=== PATIENT | male | born 1960 | race Caucasian/White ===

== ENCOUNTER → 2023-05-07 | Outpatient (CLI) | payer MEDICARE, SELFPAY ==
[2023-05-07 12:19] LABS: Absolute Lymphocyte Count 1.07 X10^3/uL (0.83-4.51); Absolute Neutrophil Count 5.5 X10^3/uL (2.0-7.7); Basophil# 0.08 X10^3/uL; Eosinophil# 0.45 X10^3/uL; Eosinophils% 5.8 % (0-5); Hematocrit 47.8 % (40-54); Hemoglobin 15.6 g/dL (13.0-16.5); Lymphocyte # 1.07 X10^3/ul (0.83-4.51); Lymphocyte % 13.7 % (19-41); Mean Corp Hgb Conc 32.6 g/dL (32-36); Mean Corpuscular Hgb 31.1 pg (27.0-32.0); Mean Corpuscular Volume 95.2 fL (80-94); Mean Platelet Vol. 9.9 fl (6.2-12.0); NRBC Flagged by Analyzer 0 % (0-5); Neutrophil # 5.48 X10^3/uL (2.7-7.7); Neutrophil % 70.2 % (47-70); Platelet Count 263 K/mm3 (150-450); RBC Distribution Width CV 12.5 % (11.6-14.6); RBC Distribution Width SD 43.4 fl (35.1-43.9); Red Blood Count 5.02 M/mm3 (4.6-6.2); White Blood Count 7.8 K/mm3 (4.4-11.0)
[2023-05-07 13:02] LABS: AST(SGOT) 11 U/L (15-37); Alanine Aminotransfer ALT/SGPT 18 U/L (16-61); Albumin, Serum 3.7 g/dL (3.2-5.0); Alkaline Phosphatase 78 U/L (45-117); Anion Gap 5 (5-15); BUN 16 mg/dL (7-18); BUN/Creat Ratio 14.7 RATIO (10-20); Calcium,Total 9.1 mg/dL (8.5-10.1); Chloride 106 mmol/L (98-107); Cholesterol 216 mg/dL (200); Creatinine, Serum 1.09 mg/dL (0.70-1.30); EST Glomerular Filtration Rate 72 mL/min (>60); Est Glom Filt Rate - Afr Amer 87 mL/min (>60); Globulin 3.6 g/dL (2.2-4.2); Glucose 107 mg/dL (74-106); High Density Lipoprotein 51 mg/dL; Protein, Total 7.3 g/dL (6.4-8.2); Sodium Level 136 mmol/L (136-145); Triglycerides 154 mg/dL; Very Low Density Lipoprotein 31 mg/dL (5-40)
== END | disposition home or self-care (01) ==
PROVIDERS: PCP Family Medicine; Referring Provider Family Medicine; Visit Provider Family Medicine
DX: R03.0 Elevated blood-pressure reading, without diagnosis of hypertension (principal)
CPT/HCPCS: 36415; 80053; 80061; 85025

== ENCOUNTER → 2023-05-17 | Outpatient (CLI) | payer MEDICARE, SELFPAY ==
--- NOTE | 2023-05-17 07:51 | AAVD_ITS ---
Version 2 Reason For Study: AAA Screening Aorta Measurements Aorta Doppler Measurements Proximal aorta measures2.49 x 2.49cm. in cross- Peak systolic flow velocities within the proximal sectional axis. aorta measure 71.3 cm/sec. Proximal aorta measures2.44cm. in longitudinal Peak systolic flow velocities within the mid aorta axis. measure 82.3 cm/sec. Mid aorta measures2.06 x 2.10cm. in cross- Peak systolic flow velocities within the distal sectional axis. aorta measure 42.8 cm/sec. Mid aorta measures2.04cm. in longitudinal axis. Distal aorta measures3.53 x 3.53cm. in cross- sectional axis. Distal aorta measures3.65cm. in longitudinal axis. Heterogenous plaque, possible mural thrombus noted in distal portion of Aorta. Left Iliac Artery Left iliac artery measures 0.92 x 0.92 cm. in the cross-sectional axis. Left iliac artery measures 0.95 cm. in the longitudinal axis. Peak systolic velocity in the left iliac artery measures 127.1 cm/sec. Right Iliac Artery Right iliac artery measures 0.89 x 0.95 cm. in the cross-sectional axis. Right iliac artery measures 0.89 cm. in the longitudinal axis. Peak systolic velocity in the right iliac artery measures 122.7 cm/sec. Procedure Aorta IVC Iliac vasculature or bypass grafts 73003. The exam was diagnostic. Exam performed in department. 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 Bilateral iliac arteries patent, normal caliber. Ordering Physician: Charlie Welch Referring Physician: Charlie Welch Performed By: Kahlil Roa RVT
== END | disposition home or self-care (01) ==
PROVIDERS: PCP Family Medicine; Referring Provider Family Medicine; Visit Provider Family Medicine
DX: Z72.0 Tobacco use (principal)
CPT/HCPCS: 93978

== ENCOUNTER → 2023-05-24 | Outpatient (CLI) | payer MEDICARE, SELFPAY ==
--- NOTE | 2023-05-24 17:59 | CT_ITS ---
STUDY: LOW DOSE CT LUNG CANCER SCREENING REASON FOR EXAM: Male, 62 years old. TOBACCO USE RADIATION DOSAGE (If Supplied By Facility): CTDIvol = ( 3.02 ) mGy, DLP = ( 111.74 ) mGycm TECHNIQUE: No contrast was administered. Low dose technique was utilized (average mAS-38 and kVp 120). 1.25 mm axial source images with a slice interval of 1.25-mm were reconstructed in lung windows. 2.5 mm axial source images with a slice interval of 2.5-mm were reconstructed in lung windows. 5.0 mm axial source images with a slice interval of 5.0-mm were reconstructed in soft tissue windows. COMPARISON: None. Emphysema: Mild bilateral apical scarring. Severe emphysema with a large bulla in the apex of the left lung. 6 mm noncalcified subpleural nodule in the superior segment of the right lower lobe of the lungs on image 120 and follow-up CT is recommended in 6 months document stability. 4 mm noncalcified nodule in the periphery of the right upper lobe with lungs and image 131. 6 mm noncalcified nodule in the anterior right middle lobe lung associated with the minor fissure consistent with a perifissural lymph node.. Endobronchial lesion: None Aorta: Some calcified plaque in the aortic arch but no aortic aneurysm. CORONARY ARTERIES: Coronary artery calcification is seen. Heart: No cardiomegaly. Pulmonary artery: Normal Mediastinal nodes: Normal Other chest and abdominal findings: None CT/Low Dose CT Lung Screening IMPRESSION: Lung-RADS category 3 - Continue screening with LDCT in 6 months. IMPORTANT NOTES FOR USE: ACR Lung-RADS Version 1.1 Assessment Categories Release Date: 2018 Category: Coded 0-4 bases on nodule(s) with highest degree of suspicion. Negative screen is defined as categories 1 and 2; a positive screen is defined as categories 3 and 4. Category 3 and 4A nodules that are unchanged on interval CT should be coded as category 2, and individuals returned to screening in 12 months. Category 4X: Category 3 or 4 nodules with additional imaging findings that increase the suspicion of lung cancer, such as spiculation, GGN that doubles in size in 1 year, enlarged lymph notes, etc. Category Modifiers: S (significant finding unrelated to lung cancer) Electronically Signed: aNeem Lenz MD at 23:03 EST ,
== END | disposition home or self-care (01) ==
LOC: CT 17:57
PROVIDERS: PCP Family Medicine; Referring Provider Family Medicine; Visit Provider Family Medicine
DX: Z12.2 Encounter for screening for malignant neoplasm of respiratory organs (principal); Z87.891 Personal history of nicotine dependence
CPT/HCPCS: 71271

== ENCOUNTER → 2023-11-25 | Outpatient (CLI) | payer MEDICARE, SELFPAY ==
--- NOTE | 2023-11-25 07:54 | CT_ITS ---
STUDY: LOW DOSE CT LUNG CANCER SCREENING REASON FOR EXAM: Male, 63 years old. EMPHYSEMA, LUNG NODULE. The patient smoked 1 pack per day for 50 years. RADIATION DOSAGE (If Supplied By Facility): CTDIvol = ( 3.02 ) mGy, DLP = ( 114.38 ) mGycm TECHNIQUE: No contrast was administered. Low dose technique was utilized (average mAS-38 and kVp 120). 1.25 mm axial source images with a slice interval of 1.25-mm were reconstructed in lung windows. 2.5 mm axial source images with a slice interval of 2.5-mm were reconstructed in lung windows. 5.0 mm axial source images with a slice interval of 5.0-mm were reconstructed in soft tissue windows. COMPARISON: Comparison is made with prior study dated May 24, 2023. NODULES: Stable 6 mm nodule in the right middle lobe anteriorly adjacent to the minor fissure. Emphysema: Hyperinflation. Emphysematous changes more prominent in the upper lobes. Stable large bulla in the apex of the left lung. 6 mm noncalcified nodule in the superior medial segment of the right lower lobe abutting the pleura. Stable 4 mm noncalcified nodule in the periphery of the right upper lobe. Endobronchial lesion: None Aorta: Atherosclerotic calcific plaques. CORONARY ARTERIES: Coronary artery calcification is seen. Heart: Unremarkable Pulmonary artery: Unremarkable Mediastinal nodes: Unremarkable Other chest and abdominal findings: CT/Low Dose CT Lung Screening IMPRESSION: Lung-RADS category 2 - Continue annual screening with LDCT in 12 months. IMPORTANT NOTES FOR USE: ACR Lung-RADS Version 1.1 Assessment Categories Release Date: 2018 Category: Coded 0-4 bases on nodule(s) with highest degree of suspicion. Negative screen is defined as categories 1 and 2; a positive screen is defined as categories 3 and 4. Category 3 and 4A nodules that are unchanged on interval CT should be coded as category 2, and individuals returned to screening in 12 months. Category 4X: Category 3 or 4 nodules with additional imaging findings that increase the suspicion of lung cancer, such as spiculation, GGN that doubles in size in 1 year, enlarged lymph notes, etc. Category Modifiers: S (significant finding unrelated to lung cancer) Electronically Signed: Emir Bell MD at 14:47 EDT ,
== END | disposition home or self-care (01) ==
LOC: CT 07:36
PROVIDERS: PCP Family Medicine; Referring Provider Family Medicine; Visit Provider Family Medicine
DX: Z12.2 Encounter for screening for malignant neoplasm of respiratory organs (principal); F17.210 Nicotine dependence, cigarettes, uncomplicated
CPT/HCPCS: 71271

== ENCOUNTER → 2023-11-26 | Outpatient (CLI) | payer MEDICARE, SELFPAY | END | disposition home or self-care (01) | LOC: PSN 12:37 | PROVIDERS: PCP Family Medicine; Referring Provider Family Medicine; Visit Provider Family Medicine | DX: R91.1 Solitary pulmonary nodule (principal); J43.9 Emphysema, unspecified | CPT/HCPCS: 94060; 94726; 94729 ==

== ENCOUNTER → 2024-05-21 | Outpatient (CLI) | payer MEDICARE, SELFPAY ==
[2024-05-21 15:13] LABS: Absolute Lymphocyte Count 1.28 X10^3/uL (0.83-4.51); Absolute Neutrophil Count 4.5 X10^3/uL (2.0-7.7); Basophil# 0.08 X10^3/uL; Basophil% 1.1 % (0-1); Eosinophil# 0.59 X10^3/uL; Eosinophils% 8.2 % (0-5); Hematocrit 46.9 % (40-54); Hemoglobin 15.1 g/dL (13.0-16.5); Lymphocyte # 1.28 X10^3/ul (0.83-4.51); Lymphocyte % 17.8 % (19-41); Mean Corp Hgb Conc 32.2 g/dL (32-36); Mean Corpuscular Volume 93.1 fL (80-94); Mean Platelet Vol. 9.4 fl (6.2-12.0); Monocyte# 0.72 X10^3/uL; NRBC Flagged by Analyzer 0 % (0-5); Neutrophil % 62.6 % (47-70); Platelet Count 326 K/mm3 (150-450); RBC Distribution Width CV 12.4 % (11.6-14.6); RBC Distribution Width SD 42.5 fl (35.1-43.9); Red Blood Count 5.04 M/mm3 (4.6-6.2); White Blood Count 7.2 K/mm3 (4.4-11.0)
[2024-05-21 15:58] LABS: AST(SGOT) 12 U/L (15-37); Alanine Aminotransfer ALT/SGPT 25 U/L (16-61); Albumin, Serum 3.7 g/dL (3.2-5.0); Alkaline Phosphatase 82 U/L (45-117); Anion Gap 4 (5-15); BUN 16 mg/dL (7-18); BUN/Creat Ratio 15.8 RATIO (10-20); Calcium,Total 9.2 mg/dL (8.5-10.1); Chloride 106 mmol/L (98-107); Cholesterol 212 mg/dL (200); Creatinine, Serum 1.01 mg/dL (0.70-1.30); EST Glomerular Filtration Rate 79 mL/min (>60); Est Glom Filt Rate - Afr Amer 95 mL/min (>60); Globulin 3.8 g/dL (2.2-4.2); Glucose 98 mg/dL (74-106); High Density Lipoprotein 62 mg/dL; PSA,Total - Annual Screen 0.77 ng/mL (0.00-4.00); Potassium 4.3 mmol/L (3.5-5.1); Protein, Total 7.5 g/dL (6.4-8.2); Sodium Level 137 mmol/L (136-145); Triglycerides 90 mg/dL; Very Low Density Lipoprotein 18 mg/dL (5-40)
== END | disposition home or self-care (01) ==
PROVIDERS: PCP Family Medicine; Referring Provider Family Medicine; Visit Provider Family Medicine
DX: E78.5 Hyperlipidemia, unspecified (principal); R03.0 Elevated blood-pressure reading, without diagnosis of hypertension; Z12.5 Encounter for screening for malignant neoplasm of prostate
CPT/HCPCS: 36415; 80053; 80061; 84153; 85025; G0103

== ENCOUNTER → 2024-07-27 | Outpatient (CLI) | payer MEDICARE, SELFPAY | END | disposition home or self-care (01) | LOC: LAB 13:36 | PROVIDERS: PCP Family Medicine; Referring Provider Nurse Practitioner Acute Care; Visit Provider Nurse Practitioner Acute Care | DX: Z00.00 Encounter for general adult medical examination without abnormal findings (principal) ==

== ENCOUNTER → 2024-07-28 | Outpatient (CLI) | payer MEDICARE, SELFPAY ==
[2024-07-30 06:08] LABS: Calprotectin, Stool 116 ug/g (0-120)
== END | disposition home or self-care (01) ==
LOC: LABSPEC 11:03
PROVIDERS: PCP Family Medicine; Referring Provider Nurse Practitioner Acute Care; Visit Provider Nurse Practitioner Acute Care
DX: R19.7 Diarrhea, unspecified (principal); K58.9 Irritable bowel syndrome, unspecified; R15.2 Fecal urgency
CPT/HCPCS: 83993; 87177; 87209; 87493

== ENCOUNTER 2024-09-29 05:30 | Day surgery (SDC) | payer MEDICARE, OTHER, SELFPAY ==
[2024-09-29] VITALS (8 sets, daily range): BP systolic 97–132; BP diastolic 63–86; PULSE 60–77; RESP 16–18; TEMP 36.3–36.6; O2SAT 93–96; BMI 24.0
[2024-09-29] MEDS: Lactated Ringers 1,000 ML 15 ML IV (06:19)
--- NOTE | 2024-09-29 06:25 | PRE.ANES_ITS ---
ASA Classification* ASA Classification ASA Classification: 2 Assessment & Plan Anesthesia* Anesthesia Assessment Anesthesia Assessment: Discussed sedation and/or anesthesia options, risks, benefits, and alternatives with patient/parents/legal guardian/POA. Questions invited. The patient/parents/legal guardian/POA seems to understand and agrees to proceed with anesthesia plan. Reviewed the physical assessment, medical history, allergy history and patient home medications list prior to surgery/procedure/anesthetic and documented any changes. Performed airway and anesthesia risk assessments. Anesthesia Type Anesthesia Type: MAC History Source History Obtained from:: Patient and Chart Anesthesia Focused Assessment* Temperature: 97.9 F Pulse Rate: 77 Blood Pressure: 132/86 Respiratory Rate: 18 Pulse Ox: 96 Oxygen Delivery Method: Room Air Airway Assessment Mouth opens: >3 cm Mallampati Score: III Teeth Condition: Caps/Crowns (Patient has several crowns. They are all tight.) and Partial (Patient has upper partial. It is out.) Neck Range of motion (ROM): Limited ROM (Slight decrease in extension) Focused Labs Anesthesia Preop lab: CBC WBC 7.2 K/mm3 (4.4-11.0) 05/21/24 12:45 05/21/24 RBC 5.04 M/mm3 (4.6-6.2) 05/21/24 12:45 05/21/24 Hgb 15.1 g/dL (13.0-16.5) 05/21/24 12:45 05/21/24 Hct 46.9 % (40-54) 05/21/24 12:45 05/21/24 Plt Count 326 K/mm3 (150-450) 05/21/24 12:45 05/21/24 CHEMISTRY Potassium 4.3 mmol/L (3.5-5.1) 05/21/24 12:45 05/21/24 Sodium 137 mmol/L (136-145) 05/21/24 12:45 05/21/24 BUN 16 mg/dL (7-18) 05/21/24 12:45 05/21/24 Creatinine 1.01 mg/dL (0.70-1.30) 05/21/24 12:45 05/21/24 Glucose 98 mg/dL (74-106) 05/21/24 12:45 05/21/24 COAG Pre-Assessment Diagnosis/Proposed Procedure Planned Operative Procedure(s): EGD, CSCOPE Anesthesia History 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 When Was Last Pacemaker Check QUESTION #4 FULL TEXT: You/Your Family Experience fever (hyperthermia) with Anesthesia Last Oral Intake Last Oral intake: Last Oral Intake NPO since 22:30 09/29/24 06:13 Meds taken in AM with sips of water? Meds patient instructed to inhalers 09/29/24 06:13 take am of surgery PONV PONV - cargo services coordinator: PONV - cargo services coordinator Female No 09/25/24 10:46 HX of Motion Sickness No 09/25/24 10:46 HX of N/V After Surgery No 09/25/24 10:46 Non-Smoker No 09/25/24 10:46 Duration of Surgery greater No 09/25/24 10:46 than 60 minutes Number of Risk Factors PONV Score Height & Weight Height & Weight: Anesthesia: Height & Weight Height 5 ft 8 in 09/29/24 06:13 Weight: 71.9 kg 09/29/24 06:13 Body Mass Index (BMI) 24.0 09/29/24 06:13 Respiratory Assessment Respiratory Assessment - cargo services coordinator: Respiratory Tract Infection Hx - cargo services coordinator Hx Respiratory Tract Infection No 09/25/24 10:46 STOP Sleep Apnea STOP Sleep Apnea - cargo services coordinator: STOP Sleep Apnea - cargo services coordinator Hx Hypertension No 09/25/24 10:46 Hx Sleep Apnea No 09/25/24 10:46 CPAP BIPAP Do you snore loudly (louder No 09/25/24 10:46 than talking or can be heard Do you often feel tired/ No 09/25/24 10:46 fatigued/ sleepy during daytime? Has anyone observed you stop No 09/25/24 10:46 breathing during sleep? STOP Results Negative 09/25/24 10:46 QUESTION #5 FULL TEXT : Do you snore loudly (louder than talking or can be heard through closed doors)? 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 Specify any problems Hx of Preganancy in last 3 N/A 09/25/24 10:46 Months Nurse Filling Out Transfusion NBUCHER 09/25/24 10:46 & Questions: Date: 09/25/24 09/25/24 10:46 Time: 10:47 09/25/24 10:46 Patient unable to answer at this time (ie. confused, unrespo /Reproduction History /Reproductive History - cargo services coordinator: /Reproductive Hx- cargo services coordinator Hx Now No 09/25/24 10:46 Gestational Age (in weeks): EDC: Hx Hx Para Hx Section SAB No 09/25/24 10:46 Active Medications Active Medications: Current Medications Generic Name Dose Route Start Last Admin Trade Name Freq PRN Reason Stop Dose Admin Lactated Ringer's 1,000 mls @ 15 mls/hr 09/29/24 06:00 09/29/24 06:19 IV 15 mls/hr .Q48H LITA Administration PFSH Medical History (Updated 09/25/24 @ 10:54 by Clare Frazier) Wears glasses Wears partial dentures Chronic cough Smoker History of stress test Home Medications ?Medication ?Instructions ?Recorded ?Last Taken ?Type albuterol sulfate 90 mcg/actuation 2 puff inhalation Q 6H PRN 07/27/24 09/29/24 History aerosol inhaler shortness of breath or wheez ing budesonide 160 mcg-glycopyr 9 2 inh inhalation BID 09/29/24 History mcg-formot 4.8 mcg/actuation HFA inhaler (Breztri Aerosphere) peg 3350-electrolytes 236 240 ml PO Q10M #4,000 mL Unknown Rx gram-22.74 gram-6.74 gram-5.86 gram solution (Golytely) Allergy/AdvReac Type Severity Reaction Status Date / Time No Known Allergies Allergy Verified 09/29/24 06:12 Surgical History (Updated 09/29/24 @ 06:[address] Cesar Kyle MD) Fracture of left leg Social History Smoking Status: Current every day smoker tobacco type: cigarettes Review of Systems (Anesthesia) ROS Narrative System reviewed and no additional complaints, except as documented.
--- NOTE | 2024-09-29 06:30 | EGD_PTH ---
PATIENT: NIKUNJ BOBO LOC: EN U#:[id number] AGE/SX: 64/M ROOM: RE09/29/[address]: Dr. Guevara Palomares DO : 1960 BED: DIS: 09/29/2024 SPEC #: [id number] RECD: 09/29/24 13:47 STATUS: REYES TEJINDER #: [id number] TEJINDER: 09/29/24 06:[address]: Guevara Palomares DEPT: SURGICAL PATHOLOGY RECD BY: Jason Kowalski ENTERED: 09/29/24 13:48 SP TYPE: EGD BIOPSY ARCELIA DR: Charlie Welch MD Tissues: A - Esophagus, NOS B - Sigmoid colon biopsy C - Sigmoid colon biopsy D - Rectum, NOS Procedures: Surgery Specimen Level IV HEADER OPERATION: Colonoscopy, EGD, biopsy, polypectomy PRE-OP DIAGNOSIS: Diarrhea, fecal urgency, weight loss, family history of colon cancer, early satiety, tobacco dependence with current use TISSUE SUBMITTED: A- Distal esophagus biopsy, B- Sigmoid polyp biopsy, C- Sigmoid colon colitis biopsy, D- Recto sigmoid junction polyp MICROSCOPIC DIAGNOSIS A. Esophagus, distal, biopsy: Squamous mucosa with reactive changes, negative for increased eosinophils. Columnar mucosa with goblet cell metaplasia - see note. Negative for dysplasia. Note The diagnosis depends on the location of the biopsy and the extent of the mucosal irregularity. If the biopsy originates from the tubular esophagus and the mucosal irregularity extends at least 1 cm above the top of the gastric folds, this represents Grier mucosa. If the biopsy originates from the gastric cardia and/or the mucosal irregularity is less than 1 cm in extent, this represents intestinal metaplasia B. Sigmoid colon, polyp, biopsy: Hyperplastic polyp. C. Sigmoid colon, colitis, biopsy: No specific pathologic change. The histologic features of microscopic colitis are not demonstrated. D. Colon, rectosigmoid junction, polyp, biopsy: Tubular adenoma. MICROSCOPIC DESCRIPTION Slides are reviewed. GROSS DESCRIPTION A. Received in formalin in a container labeled with the patient's name, date of , and distal esophagus biopsy are multiple kruse-pink fragments of mucosal tissue measuring 1.3 x 0.5 x 0.3 cm in aggregate. Submitted in toto in A1. B. Received in formalin in a container labeled with the patient's name, date of , and sigmoid polyp biopsy is a 0.5 x 0.3 x 0.3 cm fragment of kruse-pink mucosal tissue. Submitted in toto in B1. C. Received in formalin in a container labeled with the patient's name, date of , and sigmoid colon colitis biopsy are multiple kruse-pink fragments of mucosal tissue measuring 0.8 x 0.6 x 0.2 cm in aggregate. Submitted in toto in C1. D. Received in formalin in a container labeled with the patient's name, date of , and rectosigmoid junction polyp is a 0.3 x 0.3 x 0.3 cm fragment of kruse-pink mucosal tissue. Submitted in toto in D1. [facility] 09-29-2024 CPT:21440u6 ADDENDUM ADDENDUM ADDENDUM ADDENDUM ADDENDUM ADDENDUM ADDENDUM ADDENDUM ADDENDUM ADDENDUM 11/02/2024 15:24 ADDENDUM 11/02/2024 15:24 ADDENDUM 11/02/2024 15:24 ADDENDUM 11/02/2024 15:24 ADDENDUM 11/02/2024 15:24 [place] SE[facility] - GRIER'S ESOPHAGUS TISSUE CYPHER REPORT RISK CLASS : LOW RISK SCORE : 2.1 5-YEAR PROBABILITY OF PROGRESSION : 0.90% Please see complete Gen Path Report in the patient's EMR
--- NOTE | 2024-09-29 06:45 | HP.PCM_ITS ---
HPI - General General Date of Admission: 09/29/24 Date of Service: 09/29/24 Chief Complaint: Diarrhea and FH colon cancer HPI Narrative NIKUNJ BOBO, is a 64 M who presents with the Chief Complaint of diarrhea - Dr. 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 - denies any fevers - but states last weekend with the severe diarrhea he was having night sweats - Brother with colon CA at 61y/o - IBU 400mg every night - denies any alcohol - smoker - 1ppd - reports a weight loss of 10lbs - now feels full with any PO intake - like I am constipated - denies any HB [facility] Medical History Wears glasses Wears partial dentures Chronic cough Smoker History of stress test Home Medications ?Medication ?Instructions ?Recorded ?Last Taken ?Type albuterol sulfate 90 mcg/actuation 2 puff inhalation Q 6H PRN 07/27/24 09/29/24 History aerosol inhaler shortness of breath or wheez ing budesonide 160 mcg-glycopyr 9 2 inh inhalation BID 09/29/24 History mcg-formot 4.8 mcg/actuation HFA inhaler (Breztri Aerosphere) peg 3350-electrolytes 236 240 ml PO Q10M #4,000 mL Unknown Rx gram-22.74 gram-6.74 gram-5.86 gram solution (Golytely) Allergy/AdvReac Type Severity Reaction Status Date / Time No Known Allergies Allergy Verified 09/29/24 06:12 Surgical History Fracture of left leg Social History Smoking Status: Current every day smoker (Patient smoked today.) tobacco type: cigarettes ROS Constitutional Constitutional: Denies fatigue, fever(s), poor appetite, weight gain or weight loss Gastrointestinal Gastrointestinal: Denies belching, bloating, change in bowel habits, change in stool character, chewing difficulty, coffee ground emesis, constipation, cramping, diarrhea, dyspepsia, dysphagia, early satiety, excessive flatus, fecal incontinence, heartburn, hematemesis, hematochezia, hemorrhoids, loose stools, melena, nausea, odynophagia, rectal bleeding, tenesmus, vomiting or weight changes Vital Signs Vital Signs Vital Signs: 09/29/24 06:13 09/29/24 06:13 09/29/24 06:33 Temperature 97.9 F 97.9 F Temperature Source Temporal Pulse Rate 77 77 Respiratory Rate 18 18 Respiratory Pattern Normal Blood Pressure 132/86 H 132/86 H Blood Pressure Mean 101 Blood Pressure Source Monitor Blood Pressure Position Semi-Fowlers Blood Pressure Location Left Arm Pulse Ox 96 96 Oxygen Delivery Method Room Air Room Air Weight Weight: 158 lb 8.198 oz Body Mass Index (BMI) 24.0 Physical Exam Const alert, oriented x3, no apparent distress and healthy appearing General Appearance: cooperative GI normal to inspection, nondistended, normoactive bowel sounds, soft to palpation, non-tender and non-distended Percussion: normal to percussion Rectal Exam: deferred Assessment & Plan Assessment/Plan (1) Family history of colon cancer: (2) Diarrhea: QUALIFIERS: Diarrhea type: unspecified type Qualified Code(s): R19.7 - Diarrhea, unspecified (3) Fecal urgency: (4) Weight loss: PLAN: Assessment and Plan Assessment and Plan (1) Diarrhea: Status: Acute Qualifiers: Diarrhea type: unspecified type Qualified Code(s): R19.7 - Diarrhea, unspecified (2) Fecal urgency: Status: Acute (3) Weight loss: Status: Acute (4) Family history of colon cancer: Status: Acute (5) Early satiety: Status: Acute (6) Tobacco dependence with current use: Status: Acute Orders: Orders Calprotectin, Stool Today R15.2 - Fecal urgency, R19.7 - Diarrhea, unspecified ENTERIC PATHOGEN PANEL STOOL Today K58.9 - Irritable bowel syndrome, unspeci fied, R15.2 - Fecal urgency, R19.7 - Diarrhea, unspecified Ova and Parasites [id number] Today K58.9 - Irritable bowel syndrome, unspecified, R15.2 - Fecal urgency, R19.7 - Diarrhea, unspecified CDIFF (PCR) Today R15.2 - Fecal urgency, R19.7 - Diarrhea, unspecified Abd Inc Decub and/or Erect Today R15.2 - Fecal urgency, R19.7 - Diarrhea, unspecified Medications: New peg 3350-electrolytes 236-22.74-6.74 -5.86 gram (Golytely) until fecal effluent is clear 240 mL PO Q10M 4,000 mL 0RF Plan 64y/o male presents for consultation with complaints of diarrhea. Diarrhea began on 06/17/2024, sudden onset, urgent, frequent, watery and weight loss of 10lbs. He was seen by PCP on 06/19/2024 and reports abdominal exam revealed LLQ tenderness, he was treated for suspected diverticulitis with Augmentin x7 days. Abdominal exam today is negative for pain. He is continuing to experience watery diarrhea with a decrease in frequency and now predominantly after meals. He c/o early satiety and feeling of constipation the past few days, despite frequent loose stools. He denies any prior colonoscopy and family history is significant for brother with colon CA at 61y/o. He smokes a PPD and takes IBU 400mg every evening. I have ordered stool cultures and KUB. He will also proceed with bidirectional endoscopies. Patient Instructions: Smoking cessation encouraged Plan Details Follow Up: 2 Months (post procedure)
--- NOTE | 2024-09-29 07:25 | OP.EGD_ITS ---
Patient Name: Torito Pocne Procedure Date: 09/29/2024 6:27 AM Date of : 1960 Age: 64 Procedure: Upper GI endoscopy Indications: Epigastric abdominal pain, Heartburn, Suspected esophageal reflux Providers: Guevara Palomares DO Referring MD: Charlie Welch Md Medicines: Monitored Anesthesia Care Patient Profile: This is a 64 year old male. Refer to note in patient chart for documentation of history and physical. Patient has symptoms of chronic epigastric abdominal pain and chronic heartburn. Complications: No immediate complications. Procedure: Pre-Anesthesia Assessment: - Prior to the procedure, a History and Physical was performed, and patient medications and allergies were reviewed. The patient is competent. The risks and benefits of the procedure and the sedation options and risks were discussed with the patient. All questions were answered and informed consent was obtained. Patient identification and proposed procedure were verified by the physician in the pre-procedure area. Mental Status Examination: alert and oriented. Airway Examination: normal oropharyngeal airway and neck mobility. Respiratory Examination: clear to auscultation. CV Examination: normal. Prophylactic Antibiotics: The patient does not require prophylactic antibiotics. Prior Anticoagulants: The patient has taken no anticoagulant or antiplatelet agents. ASA Grade Assessment: II - A patient with mild systemic disease. After reviewing the risks and benefits, the patient was deemed in satisfactory condition to undergo the procedure. The anesthesia plan was to use monitored anesthesia care (MAC). Immediately prior to administration of medications, the patient was re-assessed for adequacy to receive sedatives. The heart rate, respiratory rate, oxygen saturations, blood pressure, adequacy of pulmonary ventilation, and response to care were monitored throughout the procedure. The physical status of the patient was re-assessed after the procedure. After obtaining informed consent, the endoscope was passed under direct vision. Throughout the procedure, the patient's blood pressure, pulse, and oxygen saturations were monitored continuously. The Colonoscope was introduced through the mouth, and advanced to the third part of the duodenum. Small bowel enteroscopy was deemed necessary. The upper GI endoscopy was accomplished without difficulty. The patient tolerated the procedure well. Scope In: 6:57:32 AM Scope Out: 7:00:20 AM Total Procedure Duration Time 0 hours 2 minutes 48 seconds Findings: The Z-line was irregular and was found 40 cm from the incisors. Biopsies were taken with a cold forceps for histology. Verification of patient identification for the specimen was done. Estimated blood loss was minimal. No gross lesions were noted in the entire examined stomach. No gross lesions were noted in the entire examined duodenum. Impression: - Z-line irregular, 40 cm from the incisors. Biopsied. - No gross lesions in the entire stomach. - No gross lesions in the entire examined duodenum. Recommendation: - Discharge patient to home. - Resume previous diet. - Continue present medications. - Await pathology results. Procedure Code(s): --- Professional --- 23658, Small intestinal endoscopy, enteroscopy beyond second portion of duodenum, not including ileum; with biopsy, single or multiple CPT copyright 2021 [employer]. All rights reserved. The codes documented in this report are preliminary and upon plate driller review may be revised to meet current compliance requirements. Guevara Palomares DO 09/29/2024 7:23:51 AM This report has been signed electronically. Number of Addenda: 0 Note Initiated On: 09/29/2024 6:27 AM
--- NOTE | 2024-09-29 07:25 | OP.CCLET_ITS ---
09/29/2024 Charlie Welch Md Re : Upper GI endoscopy procedure for Torito Ponce Dear Yuri This procedure was performed on Sunday, September 29, 2024. My impressions and recommendations are as follows: Impressions : - Z-line irregular, 40 cm from the incisors. Biopsied. - No gross lesions in the entire stomach. - No gross lesions in the entire examined duodenum. Recommendations : - Discharge patient to home. - Resume previous diet. - Continue present medications. - Await pathology results. My findings are described in the full procedure note, which is enclosed. If I can be of further assistance, please feel free to contact me at . Sincerely, Guevara Palomares, 09/29/2024 7:23:51 AM This report has been signed electronically.
--- NOTE | 2024-09-29 07:28 | OP.CCLET_ITS ---
09/29/2024 Charlie Welch Md Re : Colonoscopy procedure for Torito Ponce Dear Yuri This procedure was performed on Sunday, September 29, 2024. My impressions and recommendations are as follows: Impressions : - Diverticulosis in the recto-sigmoid colon and in the sigmoid colon. - One 8 mm polyp at the recto-sigmoid colon, removed with a cold snare. Resected and retrieved. - One 4 mm polyp in the sigmoid colon, removed with a jumbo cold forceps. Resected and retrieved. - Altered vascular, congested, erythematous and hpkyxbrk-nttkvsl-xgagoscbj mucosa in the recto-sigmoid colon, in the sigmoid colon and in the descending colon. Biopsied. - The examination was otherwise normal on direct and retroflexion views. - The examined portion of the ileum was normal. Recommendations : - Discharge patient to home. - Resume previous diet. - Continue present medications. - Await pathology results. - Repeat colonoscopy in 5 years for surveillance. My findings are described in the full procedure note, which is enclosed. If I can be of further assistance, please feel free to contact me at . Sincerely, Guevara Palomares, 09/29/2024 7:27:43 AM This report has been signed electronically.
--- NOTE | 2024-09-29 07:28 | OP.COLON_ITS ---
Patient Name: Torito Ponce Procedure Date: 09/29/2024 7:00 AM Date of : 1960 Age: 64 Procedure: Colonoscopy Indications: Screening for colorectal malignant neoplasm Providers: Guevara Palomares DO Referring MD: Charlie Welch Md Medicines: Monitored Anesthesia Care Patient Profile: This is a 64 year old male. Refer to note in patient chart for documentation of history and physical. Patient has symptoms of chronic epigastric abdominal pain and chronic heartburn. Last Colonoscopy: none. The patient's first colonoscopy is today. Complications: No immediate complications. Procedure: Pre-Anesthesia Assessment: - Prior to the procedure, a History and Physical was performed, and patient medications and allergies were reviewed. The patient is competent. The risks and benefits of the procedure and the sedation options and risks were discussed with the patient. All questions were answered and informed consent was obtained. Patient identification and proposed procedure were verified by the physician in the pre-procedure area. Mental Status Examination: alert and oriented. Airway Examination: normal oropharyngeal airway and neck mobility. Respiratory Examination: clear to auscultation. CV Examination: normal. Prophylactic Antibiotics: The patient does not require prophylactic antibiotics. Prior Anticoagulants: The patient has taken no anticoagulant or antiplatelet agents. ASA Grade Assessment: II - A patient with mild systemic disease. After reviewing the risks and benefits, the patient was deemed in satisfactory condition to undergo the procedure. The anesthesia plan was to use monitored anesthesia care (MAC). Immediately prior to administration of medications, the patient was re-assessed for adequacy to receive sedatives. The heart rate, respiratory rate, oxygen saturations, blood pressure, adequacy of pulmonary ventilation, and response to care were monitored throughout the procedure. The physical status of the patient was re-assessed after the procedure. After I obtained informed consent, the scope was passed under direct vision. Throughout the procedure, the patient's blood pressure, pulse, and oxygen saturations were monitored continuously. The Colonoscope was introduced through the anus and advanced to the terminal ileum. The colonoscopy was performed without difficulty. The patient tolerated the procedure well. The quality of the bowel preparation was adequate. The terminal ileum, ileocecal valve, appendiceal orifice, and rectum were photographed. Scope In: 7:02:28 AM Scope Withdrawal Time 0 hours 13 minutes 27 seconds Scope Out: 7:17:36 AM Total Procedure Duration Time 0 hours 15 minutes 8 seconds Findings: The perianal and digital rectal examinations were normal. A few small-mouthed diverticula were found in the recto-sigmoid colon and sigmoid colon. An 8 mm polyp was found in the recto-sigmoid colon. The polyp was sessile. The polyp was removed with a cold snare. Resection and retrieval were complete. Verification of patient identification for the specimen was done. Estimated blood loss was minimal. A 4 mm polyp was found in the sigmoid colon. The polyp was sessile. The polyp was removed with a jumbo cold forceps. Resection and retrieval were complete. Verification of patient identification for the specimen was done. Estimated blood loss was minimal. A segmental area of moderately altered vascular, congested, erythematous and whsuhxol-dgyvyrr-wasszowqa mucosa was found in the recto-sigmoid colon, in the sigmoid colon and in the descending colon. Biopsies were taken with a cold forceps for histology. Verification of patient identification for the specimen was done. Estimated blood loss was minimal. The exam was otherwise without abnormality on direct and retroflexion views. The terminal ileum appeared normal. Impression: - Diverticulosis in the recto-sigmoid colon and in the sigmoid colon. - One 8 mm polyp at the recto-sigmoid colon, removed with a cold snare. Resected and retrieved. - One 4 mm polyp in the sigmoid colon, removed with a jumbo cold forceps. Resected and retrieved. - Altered vascular, congested, erythematous and gvegoeml-xazvhjs-yqfdsnfju mucosa in the recto-sigmoid colon, in the sigmoid colon and in the descending colon. Biopsied. - The examination was otherwise normal on direct and retroflexion views. - The examined portion of the ileum was normal. Recommendation: - Discharge patient to home. - Resume previous diet. - Continue present medications. - Await pathology results. - Repeat colonoscopy in 5 years for surveillance. Procedure Code(s): --- Professional --- 59630, Colonoscopy, flexible; with removal of tumor(s), polyp(s), or other lesion(s) by snare technique 01319, 59, Colonoscopy, flexible; with biopsy, single or multiple CPT copyright 2021 [employer]. All rights reserved. The codes documented in this report are preliminary and upon director life sciences review may be revised to meet current compliance requirements. Guevara Palomares DO 09/29/2024 7:27:43 AM This report has been signed electronically. Number of Addenda: 0 Note Initiated On: 09/29/2024 7:00 AM
--- NOTE | 2024-09-29 07:29 | PCM.POST.ANE ---
Anesthesia: Postop Eval I Current Vital Signs Temperature: 97.4 F Pulse Rate: 64 Blood Pressure: 105/63 Respiratory Rate: 16 Pulse Ox: 94 Oxygen Delivery Method: Room Air Assessment Airway patent: Yes Spontaneous unlabored respirations: Yes Mental status: Asleep nausea: No Vomiting: No Anesthesia Complication: No Fluid Hydration Crystalloid volume administer (ml): 800 Total IV fluid infused: 800 Progress Note Anesthesia document: Postop Eval 1 completed: Yes
--- NOTE | 2024-09-29 13:08 | PCM.POSTANE2 ---
Anesthesia Postop Eval I Sum Postop Eval Completion status Anesthesia document: Postop Eval 1 completed: Yes Anesthesia Postop Eval I Summary Anesthesia Postop Eval I Summary: Anesthesia Postop Eval I: Assessment Summary Airway patent Yes 09/29/24 07:30 [email or web address] Spontaneous unlabored Yes 09/29/24 07:30 [email or web address] respirations Mental status Asleep 09/29/24 07:30 [email or web address] nausea No 09/29/24 07:30 [email or web address] Vomiting No 09/29/24 07:30 [email or web address] Anesthesia Postop Eval I: Fluid Summary Crystalloid volume administer 800 09/29/24 07:30 [email or web address] (ml) Colloids volume administered ( ml) Blood Product volume administered (ml) Total IV fluid infused 800 09/29/24 07:30 [email or web address] Anesthesia Postop Eval I: Summary Notes Anesthesia Complication No 09/29/24 07:30 [email or web address] Anesthesia Complication Comment: Post-operative progress note Anesthesia: Postop Eval II Evaluation Mental status: Awake and Calm Pain Level: 0 nausea: No Vomiting: No Complications Anesthesia Complication: No
== END 2024-09-29 08:02 | disposition home or self-care (01) ==
LOC: EN 05:32 → AC 05:33
PROVIDERS: PCP Family Medicine; Referring Provider Family Medicine; Visit Provider Internal Medicine Gastroenterology
PROC: 0DJD8ZZ Inspection of Lower Intestinal Tract, Via Natural or Artificial Opening Endoscopic (ICD-10-PCS; CPT 45378; principal; 2024-09-29 06:25)
DX: K52.9 Noninfective gastroenteritis and colitis, unspecified (principal); K57.30 Diverticulosis of large intestine without perforation or abscess without bleeding; F17.210 Nicotine dependence, cigarettes, uncomplicated; R68.81 Early satiety; K63.5 Polyp of colon; Z80.0 Family history of malignant neoplasm of digestive organs; R15.2 Fecal urgency; R63.4 Abnormal weight loss; K22.89 Other specified disease of esophagus; K63.89 Other specified diseases of intestine; Z68.24 Body mass index [BMI] 24.0-24.9, adult
CPT/HCPCS: 45380; 43239; 45385; 88305; J2405